=== PATIENT | male | born 1950 | race Caucasian/White ===

== ENCOUNTER 2024-02-03 07:22 | Day surgery (SDC) | payer MEDICARE, OTHER, SELFPAY ==
[2024-02-03] VITALS (10 sets, daily range): BP systolic 119–199; BP diastolic 63–154
[2024-02-03 07:53] LABS: Hemoglobin 15.6 g/dL (13.0-18.0); Mean Corp Hgb Conc. 33.9 g/dL (33.0-37.0); Mean Corpuscular Hgb 32.6 pg (27.0-31.0); Mean Platelet Volume 10.3 fL (7.4-10.4); Platelet Count 172 10^3/uL (130-400); Red Blood Cell Count 4.79 10^6/uL (4.70-6.10); Red Cell Dist. Width 15.4 % (11.5-14.5); White Blood Cell Count 7.9 10^3/uL (4.8-10.8)
[2024-02-03 08:12] LABS: INR 1.69; PT 20.1 Sec (11.4-14.6)
[2024-02-03 08:18] LABS: ALT (SGPT) 16 U/L (0-50); AST (SGOT) 24 U/L (17-59); Albumin 4.5 g/dl (3.5-5.0); Alkaline Phosphatase 79 U/L (38-126); Blood Urea Nitrogen 28 mg/dl (9-20); Calcium 10.1 mg/dl (8.4-10.2); Carbon Dioxide 30 mmol/L (22-30); Chloride 101 mmol/L (98-107); Glucose 99 mg/dl (70-99); Potassium 4.6 mmol/L (3.5-5.1); Sodium 134 mmol/L (135-145); Total Bilirubin 0.8 mg/dl (0.2-1.3); Total Protein 7.4 g/dl (6.3-8.2); eGFR 41.26
--- NOTE | 2024-02-03 11:27 | ITS.CL.PACE ---
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
Pacemaker Implant
Procedure Report:
Date of Procedure: February 03, 2024
Patient : [id number]
Procedures: Biventricular pacemaker generator change
Indication: 1) Class III CHF, LVEF 38%, 2) paced QRS and generator at [facility] the patient is pacemaker dependent;
Implants:
Pulse Generator: [employer]; Model# PM 3562; Serial# [id number] implanted today
Atrial Lead: Port plugged as the patient is in permanent atrial fibrillation
Right Ventricular Lead: [employer]on; Model# 2088; Serial# [id number] implanted 2014
Left Ventricular Lead: [employer]on; Model# 1458 Q; Serial# [id number] implanted 2014
Explants:
Dubon model #3242 serial #[id number] implanted 2014
Technique: The patient was prepped and draped in the usual fashion. Local anesthetic was applied to the left prepectoral subcutaneous tissue. A 4 inch incision was made. The chronic generator was exposed and removed from the field. The chronic
leads were appropriately attached to the new device. The pocket was irrigated with antibiotic solution. The device and leads were placed in the pocket. The incision was closed with absorbable sutures. The estimated blood loss was minimal. There were
no complications. Device based testing was performed as described below.
System Analysis:
RA lead: Port plugged
RV lead: R: Paced; Threshold: 0.75 V @ 0.5 ms; Impedance: 740 ohms.
LV lead: R: Paced; Threshold: 0.75 V @ 0.5 ms; Impedance: 480 ohms.
Final Programming: Tachy: VT/VF:188; Jv: DDDR 60-120.
Conclusion: Uncomplicated Biventricular pacemaker generator change
Recommendation: Routine post wound care. We will have a phone call in 7 to 10 days to go over dressing removal and to discuss with the appearance of the wound. She does have a camera to take pictures if necessary and I told her if she notices
any redness drainage or swelling to give us a call. I also discussed the importance of remote monitoring and establishment of a primary care physician to help and aid in management of his chronic medical issues.
cc: Dr. Dena Johnson
--- NOTE | 2024-02-03 13:12 | PTCARENOTE ---
Patient left via ambulance to home. Face sheet given to ambulance service along with continuum of care. IV d/c. Monitor d/c.
== END 2024-02-03 12:47 | disposition home or self-care (01) ==
LOC: CATH 07:22
PROVIDERS: ATTENDING PHYSICIAN Internal Medicine Cardiovascular Disease
DX: Z45.010 Encounter for checking and testing of cardiac pacemaker pulse generator [battery] (principal); I50.9 Heart failure, unspecified; I48.21 Permanent atrial fibrillation; Z79.82 Long term (current) use of aspirin; Z79.01 Long term (current) use of anticoagulants
CPT/HCPCS: 33229; 80053; 85027; 85610; 93005; C1882; C2621